=== PATIENT | male | born 1960 | race African-American/Black ===

== ENCOUNTER 2021-03-02 10:33 | Emergency (ER) | payer MEDICAID, MEDICARE, OTHER ==
[~2021-03-02] VITALS: Ht 165.1 cm; Wt 60.0 kg
[~2021-03-02 10:33] MED LIST: ASPI-1497 PO; ATOR-2 PO; CLOP75TA33 PO; DOCU-150 PO; FLUT1DIS3 INH; FURO40TA5 PO; HYDR-523 PO; METO100T16 PO; NITR0.4T49 SL
[2021-03-02 11:00] VITALS: BP 138/87
[2021-03-02] MEDS ORDERED: ACETAMINOPHEN 325MG TABLET PO ONE (11:15)
[2021-03-02] MEDS ORDERED: NAPR-1176 MT (12:46)
== END 2021-03-02 12:53 | disposition home or self-care (01) ==
LOC: ER 10:33
DX: R60.0 Localized edema (principal); M71.22 Synovial cyst of popliteal space [Baker], left knee; E78.00 Pure hypercholesterolemia, unspecified; I25.10 Atherosclerotic heart disease of native coronary artery without angina pectoris; J44.9 Chronic obstructive pulmonary disease, unspecified; Z79.82 Long term (current) use of aspirin; Z95.1 Presence of aortocoronary bypass graft
CPT/HCPCS: 93971; 99284

== ENCOUNTER 2021-10-19 05:09 | Inpatient (IN) | payer MEDICAID ==
[~2021-10-19] VITALS: Ht 170.2 cm; Wt 69.9 kg
[~2021-10-19 05:09] MED LIST changes: +NAPR-1176 MT
[2021-10-19 05:43] LABS: BASOPHILS % 0.9 % (0.0-2.0); EOSINOPHILS % 0.2 % (0.0-5.0); HEMATOCRIT. 39.2 % (42.0-52.0); HEMOGLOBIN. 13.1 g/dL (14.0-18.0); LYMPHOCYTES % 22.8 % (20.0-50.0); MEAN CORPUSCULAR HEMOGLOBIN 32.6 pg (28.0-32.0); MEAN CORPUSCULAR VOLUME 97.3 fL (80.0-94.0); MEAN PLATELET VOLUME 9.6 fl (7.4-10.4); MONOCYTES % 7.6 % (2.0-8.0); NEUTROPHILS % 68.5 % (40.0-76.0); PLATELET 139 x1000/uL (130-400); RED BLOOD CELL COUNT 4.03 mill/uL (4.7-6.1); RED CELL DISTRIBUTION WIDTH 13.5 % (11.6-14.6)
[2021-10-19 06:08] LABS: CHLORIDE 107 mEq/L (98-107)
[2021-10-19] MEDS ORDERED: ENALAPRIL 2.5MG/2ML VIAL 2ML IV ONE (06:45)
[2021-10-19] MEDS ORDERED: FUROSEMIDE 40MG/4ML VIAL IVP ONE (06:45)
[2021-10-19] MEDS ORDERED: ENALAPRIL 1.25MG/ML VIAL 1ML IV NR (06:45)
[2021-10-19] MEDS ORDERED: CHLORDIAZEPOXIDE 25MG CAPSULE PO ONE (07:00)
[2021-10-19] MEDS ORDERED: HYDROCODONE/ACETAMINOPHEN 5/325MG TABLET PO PRN (08:30)
[2021-10-19] MEDS ORDERED: ACETAMINOPHEN 325MG TABLET PO PRN ×2 (08:30)
[2021-10-19] MEDS ORDERED: ONDANSETRON HCL 4MG/2ML INJ IV PRN (08:30)
[2021-10-19] MEDS ORDERED: LORAZEPAM 0.5MG TABLET PO PRN (08:30)
[2021-10-19] MEDS ORDERED: DOCUSATE SODIUM 100MG CAPSULE PO PRN (08:30)
[2021-10-19] MEDS ORDERED: CLONIDINE 0.1MG TABLET PO PRN (08:30)
[2021-10-19] MEDS ORDERED: IPRATROPIUM/ALBUTEROL 0.5-3(2.5)MG/3ML NEB HHN PRN (08:30)
[2021-10-19] MEDS ORDERED: NALOXONE HCL 0.4MG/ML VIAL IV PRN (08:45)
[2021-10-19] MEDS: SPIRONOLACTONE 25MG TABLET PO SCH (09:29)
[2021-10-19] MEDS: AMLODIPINE 5MG TABLET PO SCH (09:30)
[2021-10-19] MEDS: ASPIRIN 81MG TABLET PO SCH (09:30)
[2021-10-19 09:32] LABS: *AMPHETAMINES SCREEN URINE NEGATIVE (NEGATIVE); *BARBITURATES SCREEN URINE NEGATIVE (NEGATIVE); *BENZODIAZEPINES SCREEN URINE NEGATIVE (NEGATIVE); *COCAINE SCREEN URINE PRESUMTIVE POSITIVE (NEGATIVE); CANNABINOID URINE SCREEN NEGATIVE (NEGATIVE); METHADONE URINE SCREEN NEGATIVE (NEGATIVE); OPIATES URINE SCREEN NEGATIVE (NEGATIVE); PHENCYCLIDINE URINE SCREEN NEGATIVE (NEGATIVE)
[2021-10-19 10:45] VITALS: BP 122/76
[2021-10-19 11:56] VITALS: BP 130/91
[2021-10-19] MEDS: CHLORDIAZEPOXIDE 25MG CAPSULE PO SCH ×2 (12:17→21:23)
[2021-10-19] MEDS: FOLIC ACID 1MG TABLET PO SCH (12:31)
[2021-10-19] MEDS: NICOTINE 14MG PATCH TD SCH (12:31)
[2021-10-19] MEDS: THIAMINE HCL 100MG TABLET PO SCH (12:31)
[2021-10-19] MEDS: MULTIVITAMINS,THER W-MINERALS TABLET PO SCH (12:31)
[2021-10-19] MEDS ORDERED: FUROSEMIDE 40MG/4ML VIAL IVP SCH (13:00)
[2021-10-19 14:30] LABS: HEPATITIS B SURFACE ANTIGEN NEGATIVE
[2021-10-19 15:35] VITALS: BP 140/104
[2021-10-19] MEDS: FUROSEMIDE 40MG/4ML VIAL IVP SCH (17:08)
[2021-10-19 20:00] VITALS: BP 120/82
[2021-10-20] VITALS: BP 122/81
[2021-10-20 04:00] VITALS: BP 133/89
[2021-10-20] MEDS: FUROSEMIDE 40MG/4ML VIAL IVP SCH (05:14)
[2021-10-20] MEDS: CHLORDIAZEPOXIDE 25MG CAPSULE PO SCH (05:14)
[2021-10-20 06:16] LABS: BASOPHILS % 0.7 % (0.0-2.0); EOSINOPHILS % 1.1 % (0.0-5.0); HEMATOCRIT. 44.5 % (42.0-52.0); HEMOGLOBIN. 15.2 g/dL (14.0-18.0); LYMPHOCYTES % 26.3 % (20.0-50.0); MEAN CORPUSCULAR HEMOGLOBIN 33.1 pg (28.0-32.0); MEAN CORPUSCULAR VOLUME 97.3 fL (80.0-94.0); MEAN PLATELET VOLUME 10.3 fl (7.4-10.4); MONOCYTES % 9.3 % (2.0-8.0); NEUTROPHILS % 62.6 % (40.0-76.0); PLATELET 170 x1000/uL (130-400); RED BLOOD CELL COUNT 4.58 mill/uL (4.7-6.1); RED CELL DISTRIBUTION WIDTH 13.6 % (11.6-14.6)
[2021-10-20 06:41] LABS: CHLORIDE 100 mEq/L (98-107)
[2021-10-20 08:00] VITALS: BP 124/100
[2021-10-20] MEDS: THIAMINE HCL 100MG TABLET PO SCH (08:11)
[2021-10-20] MEDS: SPIRONOLACTONE 25MG TABLET PO SCH (08:11)
[2021-10-20] MEDS: MULTIVITAMINS,THER W-MINERALS TABLET PO SCH (08:11)
[2021-10-20] MEDS: ASPIRIN 81MG TABLET PO SCH (08:11)
[2021-10-20] MEDS: AMLODIPINE 5MG TABLET PO SCH (08:12)
[2021-10-20] MEDS: NICOTINE 14MG PATCH TD SCH (08:12)
[2021-10-20] MEDS: FOLIC ACID 1MG TABLET PO SCH (08:12)
== END 2021-10-20 09:48 | disposition left against medical advice (07) | DRG 190 ==
LOC: ER 05:09 → 8WST 07:52 → EDBEDREQ 07:55 → EDBEDREQTM 07:55 → ENRESERV 09:30
PROVIDERS: ADMIT Internal Medicine; ATTEND Internal Medicine
DX: I21.4 Non-ST elevation (NSTEMI) myocardial infarction (principal); J96.01 Acute respiratory failure with hypoxia; I50.43 Acute on chronic combined systolic (congestive) and diastolic (congestive) heart failure; T59.891A Toxic effect of other specified gases, fumes and vapors, accidental (unintentional), initial encounter; J68.0 Bronchitis and pneumonitis due to chemicals, gases, fumes and vapors; F10.239 Alcohol dependence with withdrawal, unspecified; I11.0 Hypertensive heart disease with heart failure; I25.10 Atherosclerotic heart disease of native coronary artery without angina pectoris; R74.01 Elevation of levels of liver transaminase levels; D64.9 Anemia, unspecified; E78.00 Pure hypercholesterolemia, unspecified; F17.210 Nicotine dependence, cigarettes, uncomplicated; F14.10 Cocaine abuse, uncomplicated; Z95.1 Presence of aortocoronary bypass graft; Z71.41 Alcohol abuse counseling and surveillance of alcoholic; Z79.82 Long term (current) use of aspirin; Z79.899 Other long term (current) drug therapy; Z79.51 Long term (current) use of inhaled steroids; Y92.89 Other specified places as the place of occurrence of the external cause; Z82.49 Family history of ischemic heart disease and other diseases of the circulatory system
CPT/HCPCS: 36415; 71045; 76700; 80048; 80053; 80305; 83880; 84484; 85025; 86705; 86709; 86803; 87340; 93005; 93306; 99285; J1940; J3490

== ENCOUNTER 2022-02-20 08:25 | Emergency (ER) | payer MEDICAID, OTHER ==
[~2022-02-20] VITALS: Ht 167.6 cm; Wt 74.0 kg
[~2022-02-20 08:25] MED LIST changes: +ATOR40TA70 MT; +BUDE90AE INH; -DOCU-150 PO; +FURO40TA5 MT; -HYDR-523 PO; +IPRA4AER INH; +L25 PO; +LOSA25TA3 PO; -NAPR-1176 MT
[2022-02-20] MEDS ORDERED: ALBUTEROL (0.083%) 2.5MG/3ML NEB HHN STA (08:40)
[2022-02-20 08:48] LABS: BASOPHILS % 0.4 % (0.0-2.0); EOSINOPHILS % 0.4 % (0.0-5.0); HEMATOCRIT. 42.5 % (42.0-52.0); HEMOGLOBIN. 14.7 g/dL (14.0-18.0); LYMPHOCYTES % 34.2 % (20.0-50.0); MEAN CORPUSCULAR HEMOGLOBIN 34.1 pg (28.0-32.0); MEAN CORPUSCULAR VOLUME 98.8 fL (80.0-94.0); MEAN PLATELET VOLUME 7.1 fl (7.4-10.4); MONOCYTES % 11.3 % (2.0-8.0); NEUTROPHILS % 53.7 % (40.0-76.0); PLATELET 221 x1000/uL (130-400); RED CELL DISTRIBUTION WIDTH 13.8 % (11.6-14.6)
[2022-02-20 08:58] LABS: CHLORIDE 102 mEq/L (98-107)
[2022-02-20 09:08] LABS: ETHANOL BLOOD 185 mg/dL
[2022-02-20] MEDS ORDERED: P50 MT (09:59)
[2022-02-20] MEDS ORDERED: ALBU6.7H3 INH (09:59)
[2022-02-20 10:19] VITALS: BP 116/76
== END 2022-02-20 10:30 | disposition home or self-care (01) ==
LOC: ER 08:39
DX: J44.1 Chronic obstructive pulmonary disease with (acute) exacerbation (principal); I11.0 Hypertensive heart disease with heart failure; I50.9 Heart failure, unspecified; E78.00 Pure hypercholesterolemia, unspecified; Z95.1 Presence of aortocoronary bypass graft; Z79.82 Long term (current) use of aspirin
CPT/HCPCS: 36415; 71045; 80053; 80320; 83880; 84484; 85025; 93005; 94640; 99285; Z7610; G0480